=== PATIENT | female | born 1980 | race American Indian/Alaskan Native ===

== ENCOUNTER 2018-01-23 03:25 | Emergency (ER) | payer SELFPAY ==
--- NOTE | 2018-01-23 04:32 | Cat Scan Report ---
FINAL REPORT EXAM: CT HEAD/BRAIN WO CON HISTORY: Head injury TECHNIQUE: Routine axial imaging was obtained of the brain without IV contrast. FINDINGS: There is a small left pre frontal scalp laceration. There is no evidence of skull fracture. The sinuses are clear. The mastoid air cells are well pneumatized. Intracranially there is no evidence of hemorrhage or infarct. The ventricular system is appropriate in size and is symmetric. The basal cisterns appear normal IMPRESSION: Small left-sided pre frontal scalp laceration. No evidence of skull fracture or intracranial injury.
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
[2018-01-23] MEDS ORDERED: BOOSTRIX IM ONE (06:42)
[2018-01-23] MEDS ORDERED: NORCO 5/325 PO ONE (06:42)
== END 2018-01-23 07:11 | disposition home or self-care (01) ==
LOC: ED 03:25
DX: S01.81XA Laceration without foreign body of other part of head, initial encounter (principal); Z90.710 Acquired absence of both cervix and uterus; Y04.2XXA Assault by strike against or bumped into by another person, initial encounter; Y93.89 Activity, other specified; Y99.8 Other external cause status; Y92.89 Other specified places as the place of occurrence of the external cause
CPT/HCPCS: 70450; 90471; 90715

== ENCOUNTER 2019-01-15 19:32 | Emergency (ER) | payer OTHER ==
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
[2019-01-15 20:11] VITALS: BP 125/85
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
== END 2019-01-15 21:52 | disposition home or self-care (01) ==
LOC: ED 19:32
DX: S16.1XXA Strain of muscle, fascia and tendon at neck level, initial encounter (principal); R51 Headache; Z90.710 Acquired absence of both cervix and uterus; Z79.899 Other long term (current) drug therapy; V49.49XA Driver injured in collision with other motor vehicles in traffic accident, initial encounter; Y93.89 Activity, other specified; Y92.488 Other paved roadways as the place of occurrence of the external cause; Y99.8 Other external cause status
CPT/HCPCS: 72040; 72070; 99283